=== PATIENT | female | born 2000 | race Caucasian/White ===

== ENCOUNTER 2018-08-06 19:49 | Emergency (ER) | payer BC ==
[2018-08-06 20:22] VITALS: TEMP 98.2; BMI 28.1
[2018-08-06] MEDS ORDERED: FAMOTIDINE 20 MG/50 ML IVPB 20 MG/50 ML MG IVPB ONE ×2 (20:29→20:38)
[2018-08-06] MEDS ORDERED: methylPREDNISolone NA SUCC 125 MG/2 ML VIAL IVPUSH ONE (20:30)
[2018-08-06] MEDS ORDERED: methylPREDNISolone NA SUCC 125 MG/2 ML VIAL ONE (20:31)
--- NOTE | 2018-08-06 20:35 | PDOC ---
History of Present Illness - General Chief Complaint: Allergic Reaction Stated Complaint: Allergic Reaction Time Seen by Provider: 08/06/18 20:33 History Source: Patient Exam Limitations: No Limitations - History of Present Illness Initial Comments: HPI: 18 y/o female presenting to [facility] ER complaining of a possible allergic reaction. Pt ate a taco from the [employer] and began to feel mouth itching, tongue swelling, developed a hoarse voice, SOB, chest pain, and abdominal pain with nausea. Pt was already inside the hospital visiting family, so she came directly to the ED. Used her [facility] in the triage area. Pt has known allergies to all tree nuts, legumes, coconut, and Amoxicillin. Has experienced similar type reactions in the past. Has never used her epi-pen and denies h/o of intubation. At time of initial interview, the pt reports her symptoms were resolving. She no longer endorsed SOB, chest pain, abdominal pain, voice changes, or mouth itching. Denies rash. Medical Hx: - Asthma Past History - Past Medical History Allergies/Adverse Reactions: Allergies Allergy/AdvReac Type Severity Reaction Status Date / Time peanut Allergy Verified 08/06/18 20:22 Home Medications: Ambulatory Orders NK [No Known Home Medication] 08/06/18 Prednisone [Prednisone 50 MG TABLETS] 50 mg PO DAILY 4 Days #4 tablet 08/06/18 Asthma: Yes COPD: No - Suicide/Smoking/Psychosocial Hx Smoking History: Never smoked Have you smoked in the past 12 months: No Information on smoking cessation initiated: No Hx Alcohol Use: No Drug/Substance Use Hx: No Review of Systems - Review of Systems Able to Perform ROS?: Yes Comments:: In addition to that documented in the HPI above, the additional ROS was obtained : Constitutional: Denies fevers or chills Eyes: Denies vision changes ENMT: Per HPI CV: Per HPI Resp: Per HPI GI: Denies vomiting or diarrhea : Denies painful urination MSK: Denies recent trauma Skin: Denies new rashes Neuro: Denies new numbness or tingling or weakness Endocrine: Denies polyuria Heme: Denies bleeding *Physical Exam - Vital Signs Last Vital Signs Temp Pulse Resp BP Pulse Ox 98.2 F 70 16 149/88 95 08/06/18 20:20 08/06/18 20:20 08/06/18 20:20 08/06/18 20:20 08/06/18 20:20 - Physical Exam Comments: Constitutional: Well-developed, well-nourished female in no acute distress or obvious discomfort. Found semi-fowlers on hospital bed. Alert and oriented x4. Answered all questions appropriately and completely. Speech was non-labored, non -pressured. Head: Normocephalic. No obvious external signs of trauma. Eyes: Sclerae white. EARS: Hearing grossly intact. NOSE: No nasal discharge. THROAT: Oral cavity and pharynx normal. No inflammation, swelling, exudate, or lesions. Teeth and gingiva in good general condition. Neck: Supple, trachea is midline. No JVD. Cardiovascular: Regular rate and regular rhythm. No murmur, rubs, clicks, or gallops. Peripheral pulses: Radial pulses full. Respiratory: Breathing unlabored. Equal chest rise and fall. Clear to auscultation bilaterally. No stridor, no wheezing, no rhonchi. Gastrointestinal: abdomen is soft, non-tender, non-distended. Neuro: Alert and oriented. Moving all four extremities spontaneously. Skin: Warm, dry, and intact. No bruising, rashes, or other lesions. Psych: Affect: appropriate. Mood: normal. Moderate Sedation - Procedure Monitoring Vital Signs: Procedure Monitoring Vital Signs Temperature 98.2 F 08/06/18 20:20 Pulse Rate 70 08/06/18 20:20 Respiratory Rate 16 08/06/18 20:20 Blood Pressure 149/88 08/06/18 20:20 O2 Sat by Pulse Oximetry (%) 95 08/06/18 20:20 Medical Decision Making - Medical Decision Making *Reviewed vital signs, nursing notes, and prior visit documentation (if available). 18 y/o female presenting with likely allergic reaction to known allergy in restaurant meal. Symptoms resolving after receiving famotidine, decadron, benadryl, and albuterol. Low suspicion for anaphylactic shock. Will monitor for symptom resolution in the department for four hours. Anticipate discharge home without outpatient follow up. Pt states she already has a current epi-pen that she will be able to carry on her person. Will prescribe 4 day course of prednisone. Prescription sent to [facility]. Pt signed out to resident Dr. Aguirre after he was verbally appraised of the pt s HPI, current ED course, and plan of management. Will monitor for continued symptom resolution. *DC/Admit/Observation/Transfer Diagnosis at time of Disposition: Allergic reaction - Discharge Dispostion Condition at time of disposition: Stable - Prescriptions Prescriptions: Prednisone [Prednisone 50 MG TABLETS] 50 mg PO DAILY 4 Days #4 tablet - Referrals - Patient Instructions - Post Discharge Activity
--- NOTE | 2018-08-06 20:35 | PDOC ---
Rapid Medical Evaluation Chief Complaint: Allergic Reaction Medical Evaluation: Allergies Allergy/AdvReac Type Severity Reaction Status Date / Time peanut Allergy Verified 08/06/18 20:22 Vital Signs Temp Pulse Resp BP Pulse Ox 98.2 F 70 16 149/88 95 08/06/18 20:20 08/06/18 20:20 08/06/18 20:20 08/06/18 20:20 08/06/18 20:20 08/06/18 20:30 I have performed a brief in-person evaluation of this patient. The patient presents with a chief complaint of:FACIAL SWELLING ~ 15MINS AFTER INGESTIONG NUTS/ mOLE SAUCE - contains nuts . Feels lips swellign and some faint wheezing Pertinent physical exam findings: face flushed, lips enlarged, no cough. Iv started and patient taken to Main ER for immediate attention I have ordered the following: pepcid, solumedrol, benadryl The patient will proceed to the ED for further evaluation. 08/06/18 20:34
[2018-08-06] MEDS ORDERED: ALBUTEROL SO4 0.083% IH SOL 2.5 MG/3 ML VIAL.NEB. NEB ONE ×2 (20:38→20:57)
--- NOTE | 2018-08-06 21:17 | PDOC ---
Attending Attestation - Resident Resident Name: Gatito Gill - ED Attending Attestation I have performed the following: I have examined & evaluated the patient, The case was reviewed & discussed with the resident, I agree w/resident's findings & plan, Exceptions are as noted - HPI HPI: 08/06/18 21:22 The patient is a 18 year old female, with a significant past medical history of food allergies, who presents to the emergency department for evaluation of allergic reaction at 7:30PM after eating a taco from [employer]. She states she developed mouth itching, tongue swelling, mild shortness of breath, mild chest pain, and hoarse voice about 15 seconds after eating the taco. She reported her symptoms have now resolved and states she feels better now. She states she has an active epipen which she has not had to use in the past. She denies using the epipen this evening. The patient denies headache and dizziness. The patient denies fever, chills, nausea, vomit, diarrhea and constipation. The patient denies dysuria, frequency , urgency and hematuria. Allergies: amoxicillin, nuts, legumes - Physicial Exam PE: 08/06/18 21:27 GENERAL: Awake, alert, and fully oriented, in no acute distress. Pleasant, well appearing EYES: PERRLA, EOMI, sclera anicteric, conjunctiva clear ENT: Nares patent, oropharynx clear without exudates, erythema or edema. Uvula midline Moist mucosa LUNGS: Breath sounds equal, clear to auscultation bilaterally. No wheezes, and no crackles HEART: Regular rate and rhythm, normal S1 and S2, no murmurs, rubs or gallops ABDOMEN: Soft, nontender, normoactive bowel sounds. No guarding, no rebound. No masses EXTREMITIES: Normal range of motion, no edema. No cords, erythema, or tenderness NEUROLOGICAL: Normal speech, cranial nerves intact, equal strength and sensation b/l SKIN: Warm, Dry, normal turgor, no rashes or lesions noted. - Medical Decision Making 08/06/18 21:16 18yo F presents to the ED with allergic reaction, now improved after benadryl, steroids, pepcid. No evidence of anaphylaxis, no hypotension, wheezing, vomiting , throat closing. Plan to observe for 4 hours, epi pen PRN. Pt has epi pen at home. 08/07/18 00:00 Pt remains asymptomatic. Feels well, clinically stable prednisone prescribed Vitals stable Requests DC home I discussed the physical exam findings, ancillary test results and final diagnoses with the patient. I answered all of the patient's questions. The patient was satisfied with the care received and felt comfortable with the discharge plan and treatment plan. The patient will call their primary care physician within 24 hours to arrange follow-up and will return to the Emergency Department with any new, persistent or worsening symptoms.
[2018-08-06 23:53] VITALS: BP 132/78; PULSE 72
== END 2018-08-06 23:53 | disposition home or self-care (01) ==
LOC: JER 19:49
PROC: 3E0F7GC Introduction of Other Therapeutic Substance into Respiratory Tract, Via Natural or Artificial Opening (ICD-10-PCS; principal; 2018-08-06)
PROC: 3E033GC Introduction of Other Therapeutic Substance into Peripheral Vein, Percutaneous Approach (ICD-10-PCS; 2018-08-06)
PROC: 3E033GC Introduction of Other Therapeutic Substance into Peripheral Vein, Percutaneous Approach (ICD-10-PCS; 2018-08-06)
PROC: 3E0333Z Introduction of Anti-inflammatory into Peripheral Vein, Percutaneous Approach (ICD-10-PCS; 2018-08-06)
DX: T78.1XXA Other adverse food reactions, not elsewhere classified, initial encounter (principal); T78.3XXA Angioneurotic edema, initial encounter; X58.XXXA Exposure to other specified factors, initial encounter; Z91.018 Allergy to other foods
CPT/HCPCS: 99282-25